=== PATIENT | male | born 1940 | race Caucasian/White ===

== ENCOUNTER 2017-01-12 09:19 | Day surgery (SDC) | payer MEDICARE, BC ==
[~2017-01-12 09:19] MED LIST: CEFAZOLIN 1 G VIAL IV ONE; LIDOCAINE HCL 1% 20 ML VIAL MC ONE; ONDANSETRON 4 MG/2 ML VIAL IV ONE; PROPOFOL 200 MG/20 ML BOTTLE IV ONE; SEVOFLURANE 250 ML BOTTLE IH ONE
[2017-01-12 10:04] LABS: *BILIRUBIN,URIN NEGATIVE (NEGATIVE); *BLOOD, URINE NEGATIVE (NEGATIVE); *CLARITY,URINE CLEAR (CLEAR); *COLOR,URINE YELLOW (YELLOW); *KETONES,URINE NEGATIVE (NEGATIVE); *PROTEIN,URINE NEGATIVE (NEGATIVE); *UROBILINOGEN,URINE 0.2 E.U./dl (NORMAL); LEUKOCYTE ESTERASE ,URINE NEGATIVE (NEGATIVE); NITRITE, URINE NEGATIVE (NEGATIVE); UGLUCOSE NEGATIVE (NEGATIVE)
[2017-01-12 10:14] LABS: BACTERIA,URINE NONE SEEN /HPF (NONE SEEN); MUCUS,URINE FEW /LPF (0-FEW); RBC,URINE 0-3 /HPF (0-3); SQUAMOUS EPITHELIAL CELL,UR FEW /HPF (NONE SEEN); WBC,URINE 0-3 /HPF (0-3)
[2017-01-12] MEDS ORDERED: MIDAZOLAM HCL 2 MG/2 ML VIAL ONE (12:39)
[2017-01-12] MEDS ORDERED: FENTANYL CITRATE 100 MCG/2 ML AMPUL ONE (12:39)
[2017-01-12] MEDS ORDERED: BUPIVACAINE 0.25% 30 ML VIAL ONE (13:23)
[2017-01-12] MEDS ORDERED: MORPHINE SULFATE PF 10 MG/10 ML AMPUL IV ONE (13:23)
[2017-01-12] MEDS ORDERED: methylPREDNISolone ACETATE 40 MG VIAL ONE (13:49)
[2017-01-12] MEDS ORDERED: methylPREDNISolone ACETATE 80 MG VIAL ONE (13:49)
[2017-01-12] MEDS ORDERED: OXYCODONE/APAP 5-325 MG TABLET ONE (15:27)
== END 2017-01-12 16:01 | disposition home or self-care (01) ==
LOC: DS 09:19
PROVIDERS: ATTEND Orthopaedic Surgery
DX: M23.242 Derangement of anterior horn of lateral meniscus due to old tear or injury, left knee (principal); S83.92XD Sprain of unspecified site of left knee, subsequent encounter; X58.XXXD Exposure to other specified factors, subsequent encounter; M94.262 Chondromalacia, left knee; E11.9 Type 2 diabetes mellitus without complications; I10 Essential (primary) hypertension; Z85.46 Personal history of malignant neoplasm of prostate; E78.5 Hyperlipidemia, unspecified; E55.9 Vitamin D deficiency, unspecified; E29.1 Testicular hypofunction
CPT/HCPCS: 71010; A4663; J0690; J1030; J1040; J2250; J2274; J2405; J3010; J3490; J7030